=== PATIENT | female | born 1990 | race Two or more races ===

== ENCOUNTER 2020-10-28 15:10 | Emergency (ER) | payer SELFPAY ==
--- NOTE | 2020-10-28 15:33 | EDM.PDOC ---
ED HPI GENERAL MEDICAL PROBLEM - General Chief Complaint: Chest Pain Stated Complaint: CHEST PAIN/SENT BY [facility] Time Seen by Provider: 10/28/20 15:32 - History of Present Illness INITIAL COMMENTS - FREE TEXT/NARRATIVE: 30-year-old female presents the emergency room with chest pain. Apparently the patient was seen here by the [place] [facility] after she presented with the development of chest pain. Patient states that this time she has had chest pain for approximately 40 minutes that she believes that is associated with her anxiety. Patient has not had chest pain recently but does have a significant history of anxiety and she has a bunch of stressors in her life at this time. She states at times the pain actually gets better with deep breathing but not always. She denies any shortness of breath no nausea or vomiting. The pain is localized in her chest substernal does not radiate into either arm. Left Upper Chest Pain Score (Numeric/FACES): 8 - Related Data Allergies Allergy/AdvReac Type Severity Reaction Status Date / Time No Known Allergies Allergy Verified 10/28/20 15:23 Home Meds: Home Meds Albuterol Sulfate [Albuterol Sulfate HFA] 2 puff INH Q4HR 10/28/20 [History] Past Medical History Respiratory History: Reports: Asthma SHINGLER History: Reports: None Psychiatric History: Reports: Anxiety, Depression Dermatologic History: Reports: Eczema - Infectious Disease History Infectious Disease History: Reports: Chicken Pox - Past Surgical History HEENT Surgical History: Reports: Oral Surgery, Other (See Below) Other HEENT Surgeries/Procedures: wisdom teeth Social & Family History - Family History Family Medical History: No Pertinent Family History - Tobacco Use Tobacco Use Status *Q: Never Tobacco User Second Hand Smoke Exposure: No - Caffeine Use Caffeine Use: Reports: Energy Drinks, Tea - Recreational Drug Use Recreational Drug Use: Yes Drug Use in Last 12 Months: Yes Recreational Drug Type: Reports: Marijuana/Hashish ED ROS GENERAL - Review of Systems Review Of Systems: See Below Constitutional: Reports: No Symptoms HEENT: Reports: No Symptoms Respiratory: Reports: Pleuritic Chest Pain. Denies: Shortness of Breath, Cough Cardiovascular: Reports: Chest Pain Endocrine: Reports: No Symptoms GI/Abdominal: Reports: No Symptoms : Reports: No Symptoms Musculoskeletal: Reports: No Symptoms Skin: Reports: No Symptoms Neurological: Reports: No Symptoms Psychiatric: Reports: No Symptoms Hematologic/Lymphatic: Reports: No Symptoms Immunologic: Reports: No Symptoms ED EXAM, GENERAL - Physical Exam Exam: See Below Exam Limited By: No Limitations General Appearance: Alert, No Apparent Distress, Anxious (Mildly so) Head: Atraumatic, Normocephalic Neck: Normal Inspection, Supple, Non-Tender, Full Range of Motion Respiratory/Chest: No Respiratory Distress, Lungs Clear, Normal Breath Sounds, Other (Chest pain not aggravated with palpation) Cardiovascular: Regular Rate, Rhythm, No Edema, No Murmur GI/Abdominal: Normal Bowel Sounds, Soft, Non-Tender, Other (Obese) Extremities: Normal Inspection, No Pedal Edema Neurological: Alert, Oriented Psychiatric: Normal Affect, Anxious Skin Exam: Warm, Dry, Intact #1 Interpretation EKG Date: 10/28/20 Rhythm: NSR Rate (Beats/Min): 74 [place]: Normal P-Wave: Present QRS: Normal ST-T: Normal QT: Normal Comparison: NA - No Prior EKG EKG Interpretation Comments: Normal EKG Course - Vital Signs Last Recorded V/S: Last Vital Signs Temp 36.9 C 10/28/20 17:23 Pulse 77 10/28/20 17:23 Resp 20 10/28/20 17:23 BP 136/92 H 10/28/20 17:23 Pulse Ox 100 10/28/20 17:23 - Orders/Labs/Meds Labs: Laboratory Tests 10/28/20 10/28/20 10/28/20 Range/Units 15:40 15:40 15:40 WBC 5.80 (3.98-10.04) K/mm3 RBC 4.83 (3.98-5.22) M/mm3 Hgb 14.3 (11.2-15.7) gm/dl Hct 41.7 (34.1-44.9) % MCV 86.3 (79.4-94.8) fl MCH 29.6 (25.6-32.2) pg MCHC 34.3 (32.2-35.5) g/dl RDW Std Deviation 42.8 (36.4-46.3) fL Plt Count 210 (182-369) K/mm3 MPV 10.7 (9.4-12.3) fl Neut % (Auto) 63.2 (34.0-71.1) % Lymph % (Auto) 29.7 (19.3-51.7) % [place] % (Auto) 5.2 (4.7-12.5) % Eos % (Auto) 1.6 (0.7-5.8) Baso % (Auto) 0.3 (0.1-1.2) % Neut # (Auto) 3.67 (1.56-6.13) K/mm3 Lymph # (Auto) 1.72 (1.18-3.74) K/mm3 [place] # (Auto) 0.30 (0.24-0.36) K/mm3 Eos # (Auto) 0.09 (0.04-0.36) K/mm3 Baso # (Auto) 0.02 (0.01-0.08) K/mm3 D-Dimer, Quantitative 0.26 (0.19-0.50) mg/L Sodium 141 (136-145) mEq/L Potassium 3.9 (3.5-5.1) mEq/L Chloride 105 (98-107) mEq/L Carbon Dioxide 26 (21-32) mEq/L Anion Gap 13.9 (5-15) BUN 15 (7-18) mg/dL Creatinine 0.9 (0.55-1.02) mg/dL Est Cr Clr Drug Dosing 80.75 mL/min Estimated GFR (MDRD) > 60 (>60) mL/min BUN/Creatinine Ratio 16.7 (14-18) Glucose 82 (70-99) mg/dL Calcium 8.4 L (8.5-10.1) mg/dL Total Bilirubin 0.3 (0.2-1.0) mg/dL AST 20 (15-37) U/L ALT 28 (14-59) U/L Alkaline Phosphatase 71 (46-116) U/L Troponin I < 0.017 (0.00-0.056) ng/mL Total Protein 7.7 (6.4-8.2) g/dl Albumin 3.7 (3.4-5.0) g/dl Globulin 4.0 gm/dL Albumin/Globulin Ratio 0.9 L (1-2) TSH 3rd Generation 1.484 (0.358-3.74) uIU/mL Meds: Medications Discontinued Medications Generic Name Dose Route Start Last Admin Trade Name Freq PRN Reason Stop Dose Admin Lorazepam 1 mg 10/28/20 15:38 10/28/20 15:48 Lorazepam 2 Mg/Ml Sdv IVPUSH 10/28/20 15:39 1 mg ONETIME ONE Administration - Re-Assessments/Exams Free Text/Narrative Re-Assessment/Exam: 10/28/20 16:46 Laboratory evaluation is assuring thus far. Patient is doing much better after receiving some Ativan chest pain completely gone and she is awake and comfortable. 10/28/20 16:54 Her D-dimer is normal we will go ahead and discharge Departure - Departure Time of Disposition: 16:55 Disposition: Home, Self-Care 01 Clinical Impression: Anxiety - Discharge Information Instructions: Generalized Anxiety Disorder, Adult Referrals: PCP,None [Primary Care Provider] - Forms: ED Department Discharge Additional Instructions: Return to the emergency room with any questions problems or worsening symptoms. Establish with a local healthcare provider and discuss further treatment for your anxiety. Sepsis Event Note (ED) - Evaluation Sepsis Screening Result: No Definite Risk - Focused Exam Vital Signs: Vital Signs Temp Pulse Resp BP BP Pulse Ox 10/28/20 17:23 36.9 C 77 20 136/92 H 100 10/28/20 15:18 36.4 C 73 18 138/98 H 100
[2020-10-28] MEDS ORDERED: LORazepam 2 MG/ML SDV IVPUSH ONE (15:38)
== END 2020-10-28 17:17 | disposition home or self-care (01) ==
LOC: JD.ED 15:10
DX: F41.9 Anxiety disorder, unspecified (principal)
CPT/HCPCS: 36415; 80053; 84443; 84484; 85025; 85379; 93005; 96374; 99283; 99285-25; J2060

== ENCOUNTER 2021-04-09 22:01 | Emergency (ER) | payer SELFPAY ==
[2021-04-09] MEDS ORDERED: Albuterol 6.7 GM Inhaler INH STA (22:35)
--- NOTE | 2021-04-09 22:43 | EDM.PDOC ---
ED HPI GENERAL MEDICAL PROBLEM - General Chief Complaint: Respiratory Problem Stated Complaint: ASTHMA ATTACK Time Seen by Provider: 04/09/21 22:08 Source of Information: Reports: Patient History Limitations: Reports: No Limitations - History of Present Illness INITIAL COMMENTS - FREE TEXT/NARRATIVE: Mrs. Bass is a very pleasant 30-year-old woman with a past medical history s ignificant for PFT-proven asthma since childhood, who now presents the ED stating that she developed a nonproductive cough, dyspnea, and wheezing this morning. No recent fever. She tried taking an inhalation from her albuterol MDF, but found that it was empty. She states that she has been taking Mucinex since yesterday, with no improvement of her symptoms. Here in the ED, the patient is found to be slightly tachycardic at 106 bpm, otherwise, she is hemodynamically stable, afebrile, saturating 95% on room air. She appears to be comfortable, in no acute distress. Prior to this morning, the patient states that she has had cold-like symptoms, including a runny nose for couple of days, otherwise, the patient denies having a recent fever, chills, sore throat, ear pain, nasal or sinus congestion, cough, dyspnea, chest pain, palpitations, nausea, vomiting, constipation, diarrhea, abdominal pain, urinary symptoms, recent weight gain or weight loss, recent bloody bowel movements or black bowel movements, recent joint aches, headaches, or rashes. The patient is requesting to be swabbed for the SARS-CoV-2 virus, "just because". The patient does not have a PCP. She has not received a COVID vaccination. - Related Data Allergies Allergy/AdvReac Type Severity Reaction Status Date / Time No Known Allergies Allergy Verified 04/09/21 22:17 Home Meds: Home Meds Albuterol Sulfate [Albuterol Sulfate HFA] 2 puff INH Q4HR 10/28/20 [History] Past Medical History Respiratory History: Reports: Asthma (PFT-proven) Psychiatric History: Reports: Anxiety (untreated), Depression (untreated) Dermatologic History: Reports: Eczema - Infectious Disease History Infectious Disease History: Reports: Chicken Pox - Past Surgical History HEENT Surgical History: Reports: Oral Surgery (dental extractions) Social & Family History - Tobacco Use Tobacco Use Status *Q: Never Tobacco User - Caffeine Use Caffeine Use: Reports: Energy Drinks, Tea - Alcohol Use Alcohol Use History: No - Recreational Drug Use Recreational Drug Use: Yes Drug Use in Last 12 Months: Yes Recreational Drug Type: Reports: Marijuana/Hashish (smokes daily) - Living Situation & Occupation Living situation: Reports: , with Spouse 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 ED EXAM, GENERAL - Physical Exam Exam: See Below Exam Limited By: No Limitations General Appearance: Alert, WD/WN, No Apparent Distress Eye Exam: Bilateral Eye: EOMI, Normal Inspection Ears: Normal External Exam, Hearing Grossly Normal Nose: Normal Inspection Throat/Mouth: Normal Inspection, Normal Lips, Normal Voice, No Airway Compromise Head: Atraumatic, Normocephalic Neck: Normal Inspection, Full Range of Motion Respiratory/Chest: No Respiratory Distress, Lungs Clear, Normal Breath Sounds, No Accessory Muscle Use, Wheezing (rare scattered inspiratory squeaks). No: Decreased Breath Sounds, Crackles, Rhonchi, Stridor, Prolonged Expiration Cardiovascular: Normal Peripheral Pulses, Regular Rate, Rhythm, No Gallop, No JVD, No Murmur, No Rub Peripheral Pulses: 3+: Radial (L), Radial (R) GI/Abdominal: Normal Bowel Sounds, Soft, Non-Tender, No Organomegaly, No Distention, No Abnormal Bruit, No Mass Back Exam: Normal Inspection, Full Range of Motion, NT Extremities: Normal Inspection, Normal Range of Motion, Normal Capillary Refill Neurological: Alert, Oriented, Normal Cognition, No Motor/Sensory Deficits Psychiatric: Normal Affect Skin Exam: Warm, Dry, Intact, Normal Color, No Rash Course - Vital Signs Last Recorded V/S: Last Vital Signs Temp 36.8 C 04/09/21 22:08 Pulse 106 H 04/09/21 22:08 Resp 18 04/09/21 22:08 BP 124/88 04/09/21 22:08 Pulse Ox 95 04/09/21 22:08 - Orders/Labs/Meds Orders: Active Orders 24 hr Category Date Time Status RT Peak Flow Measurement [RC] ASDIRECTED Care 04/09/21 22:36 Ordered RT Post Treatment Assessment [RC] Click to Edit Care 04/09/21 22:36 Ordered RT Pre-Treatment Assessment [RC] Click to Edit Care 04/09/21 22:36 Ordered Meds: Medications Discontinued Medications Generic Name Dose Route Start Last Admin Trade Name Alexis PRN Reason Stop Dose Admin Albuterol 1 gm 04/09/21 22:35 Albuterol 6.7 Gm Inhaler INH 04/09/21 22:36 ONETIME STA - Re-Assessments/Exams Free Text/Narrative Re-Assessment/Exam: 04/09/21 22:38 On auscultation of the lungs, the patient has a few inspiratory and expiratory squeaks, but no true expiratory wheezing, and no prolonged expiratory phase. I do not believe that she is suffering from a significant asthma exacerbation. The patient will be given a albuterol MDI, spacer chamber, and peak flow meter by the respiratory therapist, and shown how to use a spacer chamber and peak flow meter. She can start with an albuterol MDI treatment now. With respect to the patient's request for a test for the macro SARS, I will refer her to the COVID clinic. I will also refer her to the clinic to establish a PCP. Departure - Departure Time of Disposition: 22:40 Disposition: Home, Self-Care 01 Condition: Good Clinical Impression: Cough, Dyspnea - Discharge Information *PRESCRIPTION DRUG MONITORING PROGRAM REVIEWED*: Not Applicable *COPY OF PRESCRIPTION DRUG MONITORING REPORT IN PATIENT DEBO: Not Applicable Referrals: PCP,None [Primary Care Provider] - Jolie Stewart, CLEANING TECHNICIAN [Nurse Practitioner] - Additional Instructions: You were seen in the emergency room for a cough, shortness of breath, and wheezing since this morning. On examination, no significant wheezing was found. You were provided with an albuterol MDI per the respiratory therapist, along with a spacer chamber and peak flow meter. We recommend that you check your peak flow two or three times a week, even if you are feeling well. If your peak flow drops into the yellow or red zone, contact your PCP, as this indicates that you may suffer an asthma exacerbation within the next 2 weeks. If you are feeling short of breath with wheezing, with or without a cough, check your peak flow. If it is in the yellow or red zone, take albuterol. If it is in the green zone, do not take albuterol. As discussed, it is very important that you shake your MDI for a full minute prior to actuating it. We recommend that you always use your spacer chamber whenever you take an albuterol MDI. We recommend that you discontinue Mucinex, as it has been shown to be of no benefit, but does have side effects, such as an upset stomach In order to be checked for COVID-19, please follow-up at the COVID clinic. We recommend that you follow-up with Jolie Stewart NP, or one of the other providers at the clinic, to establish a PCP. If any other problems, please do not hesitate to return to the ER. Sepsis Event Note (ED) - Evaluation Sepsis Screening Result: No Definite Risk - Focused Exam Vital Signs: Vital Signs Temp Pulse Resp BP Pulse Ox 04/09/21 22:08 36.8 C 106 H 18 124/88 95 - My Orders Last 24 Hours: My Active Orders 04/09/21 22:36 RT Peak Flow Measurement [RC] ASDIRECTED RT Post Treatment Assessment [RC] Click to Edit RT Pre-Treatment Assessment [RC] Click to Edit - Assessment/Plan Last 24 Hours: My Active Orders 04/09/21 22:36 RT Peak Flow Measurement [RC] ASDIRECTED RT Post Treatment Assessment [RC] Click to Edit RT Pre-Treatment Assessment [RC] Click to Edit
== END 2021-04-09 22:55 | disposition home or self-care (01) ==
LOC: JD.ED 22:01
DX: R05.9 Cough, unspecified (principal); R06.00 Dyspnea, unspecified; J45.909 Unspecified asthma, uncomplicated
CPT/HCPCS: 99284; A9270